=== PATIENT | female | born 1980 ===

== ENCOUNTER → 2022-06-28 | Outpatient (CLI) | payer OTHER ==
[2022-06-28 15:41] LABS: Percent Saturation 19.2 % (15.0-50.0)
== END | disposition home or self-care (01) ==
LOC: LAB SHORT 11:37
PROVIDERS: Internal Medicine Hematology & Oncology
DX: D51.8 Other vitamin B12 deficiency anemias (principal); E61.1 Iron deficiency
CPT/HCPCS: 82607; 82728; 82746; 83540; 83550

== ENCOUNTER → 2022-08-21 | Outpatient (CLI) | payer OTHER ==
[2022-08-21 19:33] LABS: Percent Saturation 19.1 % (15.0-50.0)
== END | disposition home or self-care (01) ==
LOC: LAB 16:42 → LAB SHORT 16:42
PROVIDERS: Internal Medicine Hematology & Oncology
DX: E61.1 Iron deficiency (principal)
CPT/HCPCS: 82728; 83540; 83550

== ENCOUNTER 2022-09-11 05:42 | Day surgery (SDC) | payer OTHER ==
[2022-09-11] VITALS (24 sets, daily range): BP systolic 126–161; BP diastolic 71–93
[~2022-09-11] VITALS: Ht 170.2 cm; Wt 99.4 kg
[~2022-09-11 05:42] MED LIST: ACET500 PO; NORETHINDRONE AC5 MG PO; PIRO10 PO; TRAM50; TRAM50 PO
--- NOTE | 2022-09-11 07:23 | NUR ---
Ambulatory in Day Surgery History, Chart, Medications and Allergies reviewed before start of procedure. Pre-Op teaching done. Pt verbalizes understanding.
--- NOTE | 2022-09-11 15:46 | NUR ---
CRISTIN You SPOKE TO DR DOS SANTOS REGARDING PATIENTS UPDATED STATUS. PATIENT VERY SLEEPY AND NOT WANTING TO PARTICIPATE WITH DISCHARGE INTERVENTIONS. PER DR DOS SANTOS WILL PLACE EXTENDED RECOVERY ORDERS. CONTINUE TO MONITOR.
--- NOTE | 2022-09-11 16:27 | NUR ---
ROBYN Marie SPOKE TO DR DOS SANTOS TO GET VERBAL ORDERS FOR EXTENDED RECOVERY. ORDERS PLACED. CALLED TO SURGICAL FLOOR TO GET ROOM ASSIGNMENT.
--- NOTE | 2022-09-11 16:40 | NUR ---
REPORT GIVEN TO BRANDON IBANEZ. WILL TRANSFER TO ROOM 208 VIA RNEY. AT BEDSIDE. VSS.
--- NOTE | 2022-09-11 17:00 | NUR ---
ARRIVAL PATIENT TO ROOM 208 VIA GURNEY. TRANSFERRED TO BED W/ SLIDER SHEET. PATIENT ALERT & ORIENTED X4 BUT VERY DROWSY, HAS HARD TIME KEEPING EYES OPEN. LAP SITES TO ABDOMEN APPEAR WNL. SMALL AMOUNT OF VAGINAL BLEEDING NOTED TO PRASANNA PAD. PATIENT REPORTING CRAMPING PAIN TO ABDOMEN. REPORTS NEEDING TO VOID, OFFERED TO ASSIST TO BATHROOM HOWEVER PATIENT FEELS SHE CAN NOT WALK TO BATHROOM. THIS RN AND COMPUTER HARDWARE ENGINEER SAT PATIENT AT EDGE OF BED, PATIENT UNABLE TO SIT UP INDEPENDENTLY, TRANSFERRED TO BEDSIDE COMMODE STAND & PIVOT TRANSFER. PRASANNA PAD CHANGED. ASSISTED PATIENT BACK TO BED. ORIENTED TO ROOM & CALL LIGHT, IN REACH.
--- NOTE | 2022-09-11 18:20 | NUR ---
PATIENT RESTING IN BED SINCE ARRIVAL TO UNIT. VSS ON RA. X4 LAP SITES TO ABDOMEN APPEAR WNL, C/D/I. PATIENT DOES NOT APPEAR TO BE IN PAIN. CALL LIGHT IN REACH. WILL REPORT TO ONCOMING RN AT 1900.
[2022-09-12 02:02] VITALS: BP 144/79
[2022-09-12 05:04] LABS: BASOPHILS ABSOLUTE AUTO 0.01 K/mm3 (0.00-0.23); BASOPHILS PERCENT AUTO 0 % (0-2); EOSINOPHILS PERCENT AUTO 0 % (0-6); Hematocrit 35.2 % (33.0-51.0); Hemoglobin 11.6 g/dL (11.5-16.0); IMMATURE GRAN ABSOLUTE AUTO 0.03 K/mm3 (0.00-0.10); IMMATURE GRAN PERCENT AUTO 0 % (0-1); LYMPHOCYTES ABSOLUTE AUTO 1.16 K/mm3 (0.84-5.20); LYMPHOCYTES PERCENT AUTO 11 % (21-46); MONOCYTES ABSOLUTE AUTO 0.99 K/mm3 (0.16-1.47); MONOCYTES PERCENT AUTO 9 % (4-13); Mean Corpuscular HGB 30.4 pg (26.0-34.0); Mean Corpuscular Volume 92 fL (80-100); NEUTROPHILS ABSOLUTE AUTO 8.68 K/mm3 (1.96-9.15); NEUTROPHILS PERCENT AUTO 80 % (41-73); Platelet Count 162 K/mm3 (150-400); RDW Standard Deviation 47.4 fL (35.1-46.3); Red Blood Cell Count 3.82 M/mm3 (3.80-5.20); White Blood Cell Count 10.87 K/mm3 (4.00-11.30)
--- NOTE | 2022-09-12 06:28 | NUR ---
SUMMARY PT SLEPT OFF AND ON MOST OF SHIFT.REFUSING PAIN MEDS THIS SHIFT.
[2022-09-12 07:29] VITALS: BP 143/85
[2022-09-12] MEDS ORDERED: Percocet 5-3251 EACH PO (10:11)
[2022-09-12] MEDS ORDERED: PROM25 PO (10:13)
[2022-09-12] MEDS ORDERED: TRANSDERM-SCOP1 EA10 (10:14)
[2022-09-12] MEDS ORDERED: SIME80CH PO (10:15)
[2022-09-12 10:24] VITALS: BP 148/72
--- NOTE | 2022-09-12 10:36 | NUR ---
discharged IVS DC'D, CATHETERS INTACT. REVIEWED DC INSTRUCTIONS W/PT AND SPOUSE; VERBALIZED UNDERSTANDING. VSS. PT DECLINED WC. LEFT UNIT BY AMBULATION, ACCOMPANIED BY SPOUSE W/POSSESSIONS AND DC INSTRUCTIONS IN HAND.
== END 2022-09-12 10:33 | disposition home or self-care (01) ==
LOC: ORSCMMR 05:42 → ORD 07:30 → SURS 16:55 → ORSCMMR 09-12 10:33
PROVIDERS: Obstetrics & Gynecology
PROC: 0DNU4ZZ Release Omentum, Percutaneous Endoscopic Approach (ICD-10-PCS; principal; 2022-09-11 07:30)
PROC: 0UT14ZZ Resection of Left Ovary, Percutaneous Endoscopic Approach (ICD-10-PCS; principal; 2022-09-11 07:30)
PROC: 8E0W4CZ Robotic Assisted Procedure of Trunk Region, Percutaneous Endoscopic Approach (ICD-10-PCS; principal; 2022-09-11 07:30)
PROC: 0UB04ZZ Excision of Right Ovary, Percutaneous Endoscopic Approach (ICD-10-PCS; principal; 2022-09-11 07:30)
PROC: 0UT64ZZ Resection of Left Fallopian Tube, Percutaneous Endoscopic Approach (ICD-10-PCS; principal; 2022-09-11 07:30)
DX: R10.2 Pelvic and perineal pain (principal); D27.1 Benign neoplasm of left ovary; D27.0 Benign neoplasm of right ovary; N92.1 Excessive and frequent menstruation with irregular cycle; D50.0 Iron deficiency anemia secondary to blood loss (chronic); K66.0 Peritoneal adhesions (postprocedural) (postinfection); N80.329 Endometriosis of the posterior cul-de-sac, unspecified depth; Z79.899 Other long term (current) drug therapy
CPT/HCPCS: 58661; 58662; S2900; 36415; 85025; 88305; 88311; A9270; J0690; J1100; J2250; J2405; J2704; J2765; J2795; J3010; J7120

== ENCOUNTER → 2023-02-10 | Outpatient (CLI) | payer OTHER ==
[~2023-02-10] MED LIST changes: +PROM25 PO; +Percocet 5-3251 EACH PO; +SIME80CH PO; +TRANSDERM-SCOP1 EA10
[2023-02-10 21:30] LABS: Percent Saturation 11.2 % (15.0-50.0)
== END ==
LOC: LAB 18:13 → LAB SHORT 18:13
PROVIDERS: Internal Medicine Hematology & Oncology
DX: E61.1 Iron deficiency (principal)
CPT/HCPCS: 82728; 83540; 83550

== ENCOUNTER → 2023-05-08 | Outpatient (CLI) | payer OTHER ==
[2023-05-08 15:24] LABS: Percent Saturation 28.6 % (15.0-50.0)
== END ==
LOC: LAB SHORT 10:25 → LAB 10:25
PROVIDERS: Internal Medicine Hematology & Oncology
DX: E61.1 Iron deficiency (principal)
CPT/HCPCS: 82607; 82728; 82746; 83540; 83550